=== PATIENT | male | born 1965 | race Two or more races ===

== ENCOUNTER → 2017-11-21 | Emergency (ER) | payer OTHER ==
[~2017-11-21] VITALS: Ht 172.7 cm; Wt 83.9 kg
[~2017-11-21] MED LIST: IMODIUM2 MG PO; ORPH100T PO; PROTONIX40 MG PO
== END | disposition left against medical advice (07) ==
LOC: ER 11:00
DX: S93.692A Other sprain of left foot, initial encounter (principal); X50.9XXA Other and unspecified overexertion or strenuous movements or postures, initial encounter; Y93.89 Activity, other specified; Y92.89 Other specified places as the place of occurrence of the external cause; Y99.8 Other external cause status

== ENCOUNTER 2019-11-16 04:41 | Emergency (ER) | payer OTHER ==
[~2019-11-16] VITALS: Ht 172.7 cm; Wt 88.5 kg
== END 2019-11-16 08:05 ==
LOC: ER 04:41
DX: R50.9 Fever, unspecified (principal)

== ENCOUNTER 2020-07-09 18:20 | Emergency (ER) | payer OTHER ==
[~2020-07-09] VITALS: Ht 172.7 cm; Wt 88.5 kg
== END 2020-07-09 19:59 | disposition home or self-care (01) ==
LOC: ER 18:20
DX: S82.61XA Displaced fracture of lateral malleolus of right fibula, initial encounter for closed fracture (principal); S90.01XA Contusion of right ankle, initial encounter; W18.39XA Other fall on same level, initial encounter; Y93.89 Activity, other specified; Y92.098 Other place in other non-institutional residence as the place of occurrence of the external cause; Y99.8 Other external cause status

== ENCOUNTER 2020-10-25 09:09 | Outpatient (CLI) | payer OTHER | END 2020-10-25 09:19 | disposition home or self-care (01) | LOC: RAD 09:09 | PROVIDERS: ATTEND Orthopaedic Surgery | DX: S82.61XD Displaced fracture of lateral malleolus of right fibula, subsequent encounter for closed fracture with routine healing (principal) ==

== ENCOUNTER 2021-10-29 22:13 | Emergency (ER) | payer OTHER ==
[~2021-10-29] VITALS: Ht 172.7 cm; Wt 89.4 kg
[2021-10-29] MEDS ORDERED: PLAVIX75 MG PO (22:35)
[2021-10-29] MEDS ORDERED: TYLENOL ARTHRI650 MG PO (23:55)
[2021-10-29] MEDS ORDERED: ORPHENADRINE C100 MG PO (23:55)
== END 2021-10-30 00:47 | disposition home or self-care (01) ==
LOC: ER 22:13
DX: M72.2 Plantar fascial fibromatosis (principal); M79.672 Pain in left foot; S93.602A Unspecified sprain of left foot, initial encounter; X58.XXXA Exposure to other specified factors, initial encounter; Y92.89 Other specified places as the place of occurrence of the external cause

== ENCOUNTER 2024-05-26 01:21 | Emergency (ER) | payer OTHER ==
[~2024-05-26] VITALS: Ht 172.7 cm; Wt 90.7 kg
[~2024-05-26 01:21] MED LIST changes: +ATORVASTATIN CA10 MG PO; +FLUOROMETHOLONE5 ML; +LISINOPRIL2.5 MG PO; +OPTIVE EYE DROP15 ML; +ORPHENADRINE C100 MG PO; +PLAVIX75 MG PO; +TYLENOL ARTHRI650 MG PO
[2024-05-26] MEDS ORDERED: LISINOPRIL5 MG PO (01:44)
[2024-05-26] MEDS ORDERED: HYDROCODONE/CHLORPHEN P-STIREX 5 ML ML PO STA (02:34)
[2024-05-26] MEDS ORDERED: ORPHENADRINE CITRATE 30 MG/ML AMPUL IM STA (02:35)
== END 2024-05-26 02:56 | disposition home or self-care (01) ==
LOC: ER 01:22
DX: M62.830 Muscle spasm of back (principal); R05.9 Cough, unspecified; Z88.6 Allergy status to analgesic agent; Z88.0 Allergy status to penicillin